=== PATIENT | female | born 1990 | race Caucasian/White ===

== ENCOUNTER 2018-01-21 17:48 | Emergency (ER) | payer SELFPAY ==
[~2018-01-21] VITALS: Ht 154.9 cm; Wt 56.7 kg
[2018-01-21 18:29] VITALS: BP 111/76
== END 2018-01-21 20:51 | disposition home or self-care (01) ==
LOC: ER 17:48
DX: M54.5 Low back pain (principal); F17.210 Nicotine dependence, cigarettes, uncomplicated; Z88.8 Allergy status to other drugs, medicaments and biological substances
CPT/HCPCS: 72100; 72220